=== PATIENT | female | born 2000 | race Caucasian/White ===

== ENCOUNTER → 2025-01-23 15:29 | Outpatient (REF) | payer BC, SELFPAY | LOC: HWRAD 15:29 | PROVIDERS: ATTENDING PHYSICIAN Psychiatry & Neurology Neurology; FAMILY PHYSICIAN Family Medicine Adolescent Medicine | DX: M35.7 Hypermobility syndrome (principal); M54.50 Low back pain, unspecified | CPT/HCPCS: 72072; 72100 ==

== ENCOUNTER → 2025-02-15 19:07 | Outpatient (REF) | payer BC, SELFPAY | LOC: MRI 19:07 | PROVIDERS: ATTENDING PHYSICIAN Internal Medicine Rheumatology; FAMILY PHYSICIAN Family Medicine Adolescent Medicine | DX: M35.7 Hypermobility syndrome (principal); M53.3 Sacrococcygeal disorders, not elsewhere classified | CPT/HCPCS: 72197; A9575 ==